=== PATIENT | female | born 1960 | race Caucasian/White ===

== ENCOUNTER → 2018-05-01 | Outpatient (CLI) | payer MEDICAID | LOC: COL.LAB 18:06 | DX: I83.222 Varicose veins of left lower extremity with both ulcer of calf and inflammation (principal) ==

== ENCOUNTER → 2018-08-07 | Outpatient (CLI) | payer MEDICAID | LOC: ZCOL.LAB 14:30 | DX: I83.222 Varicose veins of left lower extremity with both ulcer of calf and inflammation (principal); L97.519 Non-pressure chronic ulcer of other part of right foot with unspecified severity ==

== ENCOUNTER → 2018-11-20 | Outpatient (CLI) | payer MEDICAID | LOC: ZCOL.LAB 16:15 | DX: L97.519 Non-pressure chronic ulcer of other part of right foot with unspecified severity (principal) ==

== ENCOUNTER → 2020-03-21 | Outpatient (CLI) | payer MEDICAID | LOC: ZCOL.LAB 14:22 | DX: T14.8XXA Other injury of unspecified body region, initial encounter (principal) ==

== ENCOUNTER → 2020-06-15 | Outpatient (CLI) | payer MEDICAID | LOC: COL.LAB 20:59 | DX: L30.9 Dermatitis, unspecified (principal); L03.90 Cellulitis, unspecified; T14.8XXA Other injury of unspecified body region, initial encounter ==

== ENCOUNTER → 2020-06-15 | Outpatient (CLI) | payer MEDICAID | LOC: ZCOL.LAB 18:26 | DX: L03.90 Cellulitis, unspecified (principal); L30.9 Dermatitis, unspecified; T14.8XXA Other injury of unspecified body region, initial encounter ==

== ENCOUNTER → 2021-05-02 | Outpatient (CLI) | payer MEDICAID | LOC: ZCOL.LAB 15:47 | DX: L89.309 Pressure ulcer of unspecified buttock, unspecified stage (principal) ==